=== PATIENT | male | born 1945 | race Caucasian/White ===

== ENCOUNTER 2021-06-12 17:38 | Inpatient (IN) ==
[2021-06-12 18:27] LABS: Red Cell Distribution Width 13.2 % (11.5-14.5)
[2021-06-12 18:29] LABS: Eosinophils # 0.1 K/mcL (0.0-0.6); Immature Platelets 5.3 % (1.1-6.1); Mean Corpuscular HGB Conc 34.2 g/dL (31.6-35.5); Mean Corpuscular Hemoglobin 34.6 pg (28.0-33.3); Mean Corpuscular Volume 101.1 fL (83.0-100.0); Mean Platelet Volume 9.5 fL (9.4-12.4); Red Blood Count 3.76 M/mcL (4.19-5.50)
[2021-06-12 19:30] LABS: Platelet Count 90 K/mcL (140-400)
[2021-06-12 19:34] LABS: Influenza A PCR Negative (Negative); Influenza B PCR Negative (Negative); Resp. Syncytial Virus PCR Negative (Negative)
[2021-06-12 19:35] LABS: Lymphocytes # 0.9 K/mcL (0.6-4.6); Monocytes # 0.2 K/mcL (0.0-1.3); Neutrophils # 1.8 K/mcL (1.6-8.9); Platelet Estimate Decreased (Normal); Reactive Lymphocytes Present (Not Present)
[2021-06-12 19:49] LABS: SARS-CoV-2 by PCR (In House) Positive (Negative)
[2021-06-12 21:07] LABS: Alanine Aminotransferase 85 Units/L (7-52); Albumin 3.6 g/dL (3.5-5.7); Albumin/Globulin Ratio 0.9 (1.1-2.2); Alkaline Phosphatase 55 Units/L (34-104); Aspartate Amino Transferase 138 Units/L (13-39); BUN/Creatinine Ratio 22 (6-26); Bilirubin,Total 0.5 mg/dL (0.3-1.0); Blood Urea Nitrogen 32 mg/dL (8-23); Calcium 8.3 mg/dL (8.6-10.3); Carbon Dioxide 26 mEq/L (23-29); Chloride 97 mEq/L (98-107); Globulin 3.8 g/dL (2.4-3.5); Glucose 97 mg/dL (70-105); Osmolality,Calculated 279 (280-300); Potassium 4.6 mEq/L (3.5-5.1); Sodium 131 mEq/L (136-145); Total Protein 7.4 g/dL (6.4-8.9); Troponin I < 0.03 ng/mL (< 0.04); eGFR For African Americans 57 (> 60); eGFR For Non-African Americans 47 (> 60)
[2021-06-12] MEDS ORDERED: Dexamethasone Sodium Phos/PF 10 MG/ML VIAL IVP ONE (21:17)
[2021-06-12] MEDS ORDERED: Isovue-370 500 ML BOTTLE IVP ONE (21:42)
[2021-06-12] MEDS ORDERED: Ondansetron 4 MG/2 ML VIAL IVP PRN (21:58)
[2021-06-12] MEDS ORDERED: *HR* HYDROcodone/Acet 5/325 mg TABLET PO PRN (21:58)
[2021-06-12] MEDS ORDERED: *HR* Promethazine 25 MG/ML VIAL IM PRN (21:58)
[2021-06-12] MEDS ORDERED: Naloxone 0.4 MG/ML INJ IVP PRN (21:58)
[2021-06-12] MEDS ORDERED: Acetaminophen 325 MG TABLET PO PRN (21:58)
[2021-06-12] MEDS ORDERED: Ringers Solution, Lactated 1,000 ML IVC SCH (22:00)
[2021-06-12 22:05] LABS: INR 1.6; Prothrombin Time 18.3 Seconds (9.4-12.1)
[2021-06-12 22:08] LABS: Activated Partial Thrombo Time 32.1 Seconds (26.0-36.0)
[2021-06-12] MEDS ORDERED: *HR* LORazepam 2 MG/ML VIAL IVP PRN ×3 (22:37)
[2021-06-12] MEDS: Apixaban 5 MG TABLET PO SCH (23:20)
[2021-06-12] MEDS ORDERED: Remdesivir 200 MG in 0.9 % Sodium Chloride 100 ML IVPB ONE (23:30)
[2021-06-13 06:01] LABS: Hemoglobin 12.4 g/dL (12.9-16.9); Mean Corpuscular Volume 101.4 fL (83.0-100.0); Red Cell Distribution Width 13.2 % (11.5-14.5)
[2021-06-13 06:03] LABS: Hematocrit 36.7 % (37.5-50.1); Immature Platelets 3.6 % (1.1-6.1); Mean Corpuscular HGB Conc 33.8 g/dL (31.6-35.5); Mean Corpuscular Hemoglobin 34.3 pg (28.0-33.3); Mean Platelet Volume 9.6 fL (9.4-12.4); Monocytes # 0.1 K/mcL (0.0-1.3); Red Blood Count 3.62 M/mcL (4.19-5.50); White Blood Count 1.7 K/mcL (4.3-11.1)
[2021-06-13 06:12] LABS: Fibrinogen 564 mg/dL (169-393)
[2021-06-13 06:16] LABS: D-Dimer 1414 ng/mLFEU (0-500)
[2021-06-13 06:22] LABS: Platelet Count 86 K/mcL (140-400)
[2021-06-13 06:28] LABS: Alanine Aminotransferase 88 Units/L (7-52); Albumin 3.6 g/dL (3.5-5.7); Albumin/Globulin Ratio 1.1 (1.1-2.2); Alkaline Phosphatase 60 Units/L (34-104); Aspartate Amino Transferase 120 Units/L (13-39); BUN/Creatinine Ratio 23 (6-26); Bilirubin,Direct 0.1 mg/dL (0.0-0.2); Bilirubin,Indirect 0.4 mg/dL (0.0-1.0); Bilirubin,Total 0.5 mg/dL (0.3-1.0); Blood Urea Nitrogen 27 mg/dL (8-23); Calcium 8.4 mg/dL (8.6-10.3); Carbon Dioxide 24 mEq/L (23-29); Chloride 101 mEq/L (98-107); Globulin 3.4 g/dL (2.4-3.5); Glucose 211 mg/dL (70-105); Magnesium 2.3 mg/dL (1.6-2.6); Osmolality,Calculated 285 (280-300); Potassium 4.8 mEq/L (3.5-5.1); Sodium 132 mEq/L (136-145); eGFR For African Americans > 60 (> 60); eGFR For Non-African Americans 59 (> 60)
[2021-06-13 06:41] LABS: Ferritin > 1500 ng/mL (20-250)
[2021-06-13 06:46] LABS: Folate 16.7 ng/mL (3.0-16.0)
[2021-06-13 06:47] LABS: Lymphocytes # 0.7 K/mcL (0.6-4.6); Neutrophils # 0.9 K/mcL (1.6-8.9); Platelet Estimate Decreased (Normal); Reactive Lymphocytes Present (Not Present)
[2021-06-13] MEDS: Apixaban 5 MG TABLET PO SCH ×2 (08:00→20:02)
[2021-06-13] MEDS: Dexamethasone Sodium Phos/PF 10 MG/ML VIAL IVP SCH (08:00)
[2021-06-13] MEDS: levoFLOXacin 750 MG TABLET PO SCH (08:00)
[2021-06-13 10:51] LABS: Procalcitonin 0.12 ng/mL (0.00-0.15)
[2021-06-13 11:21] LABS: C-Reactive Protein 90 mg/L (Less than 10); Lactate Dehydrogenase 662 Units/L (140-271)
[2021-06-13] MEDS: Remdesivir 100 MG in 0.9 % Sodium Chloride 100 ML IVPB SCH (22:27)
[2021-06-14 02:47] LABS: Red Cell Distribution Width 12.8 % (11.5-14.5)
[2021-06-14 02:49] LABS: Basophils % 0.5 %; Hematocrit 35.5 % (37.5-50.1); Hemoglobin 12.2 g/dL (12.9-16.9); Immature Granulocytes % 0.5 % (0-4); Lymphocytes # 0.9 K/mcL (0.6-4.6); Lymphocytes % 15.2 %; Mean Corpuscular HGB Conc 34.4 g/dL (31.6-35.5); Mean Corpuscular Volume 98.9 fL (83.0-100.0); Mean Platelet Volume 9.8 fL (9.4-12.4); Monocytes # 0.4 K/mcL (0.0-1.3); Monocytes % 6.3 %; Neutrophils # 4.8 K/mcL (1.6-8.9); Platelet Count 103 K/mcL (140-400); Red Blood Count 3.59 M/mcL (4.19-5.50); Segmented Neutrophils % 77.5 %; White Blood Count 6.2 K/mcL (4.3-11.1)
[2021-06-14 02:52] LABS: Platelet Estimate Decreased (Normal); Reactive Lymphocytes Present (Not Present)
[2021-06-14 03:06] LABS: Alanine Aminotransferase 109 Units/L (7-52); Albumin 3.4 g/dL (3.5-5.7); Albumin/Globulin Ratio 0.9 (1.1-2.2); Alkaline Phosphatase 67 Units/L (34-104); Aspartate Amino Transferase 108 Units/L (13-39); BUN/Creatinine Ratio 26 (6-26); Bilirubin,Direct 0.1 mg/dL (0.0-0.2); Bilirubin,Indirect 0.3 mg/dL (0.0-1.0); Bilirubin,Total 0.4 mg/dL (0.3-1.0); Blood Urea Nitrogen 28 mg/dL (8-23); Calcium 8.7 mg/dL (8.6-10.3); Carbon Dioxide 22 mEq/L (23-29); Chloride 104 mEq/L (98-107); Globulin 3.6 g/dL (2.4-3.5); Glucose 222 mg/dL (70-105); Magnesium 2.1 mg/dL (1.6-2.6); Osmolality,Calculated 292 (280-300); Phosphorous 2.3 mg/dL (2.7-4.5); Potassium 4.2 mEq/L (3.5-5.1); Sodium 135 mEq/L (136-145); eGFR For African Americans > 60 (> 60); eGFR For Non-African Americans > 60 (> 60)
[2021-06-14] MEDS: Melatonin 3 MG TABLET PO PRN ×2 (03:19→21:20)
[2021-06-14] MEDS: Levothyroxine 25 MCG TABLET PO SCH (06:22)
[2021-06-14] MEDS: Furosemide 20 MG/2 ML VIAL IVP SCH (08:17)
[2021-06-14] MEDS: levoFLOXacin 750 MG TABLET PO SCH (08:17)
[2021-06-14] MEDS: Dexamethasone Sodium Phos/PF 10 MG/ML VIAL IVP SCH (08:17)
[2021-06-14] MEDS: Apixaban 5 MG TABLET PO SCH ×2 (08:17→21:20)
[2021-06-14] MEDS: Remdesivir 100 MG in 0.9 % Sodium Chloride 100 ML IVPB SCH (21:20)
[2021-06-15 03:28] LABS: Albumin 3.5 g/dL (3.5-5.7); Albumin/Globulin Ratio 0.9 (1.1-2.2); Bilirubin,Direct 0.1 mg/dL (0.0-0.2); Bilirubin,Indirect 0.4 mg/dL (0.0-1.0); Bilirubin,Total 0.5 mg/dL (0.3-1.0); Globulin 3.9 g/dL (2.4-3.5); Total Protein 7.4 g/dL (6.4-8.9)
[2021-06-15] MEDS: Levothyroxine 25 MCG TABLET PO SCH (04:39)
[2021-06-15] MEDS: levoFLOXacin 750 MG TABLET PO SCH (08:44)
[2021-06-15] MEDS: Furosemide 20 MG/2 ML VIAL IVP SCH (08:44)
[2021-06-15] MEDS: Dexamethasone Sodium Phos/PF 10 MG/ML VIAL IVP SCH (08:44)
[2021-06-15] MEDS: Apixaban 5 MG TABLET PO SCH ×2 (08:45→21:30)
[2021-06-15] MEDS: Cholecalciferol (D-3) 1,000 UNIT (25MCG) TABLET PO SCH (08:45)
[2021-06-15] MEDS: Melatonin 3 MG TABLET PO PRN (21:30)
[2021-06-15] MEDS: Remdesivir 100 MG in 0.9 % Sodium Chloride 100 ML IVPB SCH (21:30)
[2021-06-16 02:46] LABS: Albumin 3.6 g/dL (3.5-5.7); Albumin/Globulin Ratio 1.1 (1.1-2.2); Bilirubin,Direct 0.2 mg/dL (0.0-0.2); Bilirubin,Indirect 0.4 mg/dL (0.0-1.0); Bilirubin,Total 0.6 mg/dL (0.3-1.0); Globulin 3.4 g/dL (2.4-3.5)
[2021-06-16 04:11] VITALS: TEMP 97.9
[2021-06-16] MEDS: Levothyroxine 25 MCG TABLET PO SCH (05:33)
[2021-06-16] MEDS: levoFLOXacin 750 MG TABLET PO SCH (09:23)
[2021-06-16] MEDS: Apixaban 5 MG TABLET PO SCH (09:23)
[2021-06-16] MEDS: Cholecalciferol (D-3) 1,000 UNIT (25MCG) TABLET PO SCH (09:23)
[2021-06-16] MEDS: Furosemide 20 MG/2 ML VIAL IVP SCH (09:25)
[2021-06-16] MEDS: Dexamethasone Sodium Phos/PF 10 MG/ML VIAL IVP SCH (09:25)
[2021-06-16 11:14] VITALS: BP 130/76; PULSE 74
[2021-06-16 13:54] VITALS: O2SAT 96
== END 2021-06-16 15:36 | disposition home or self-care (01) | DRG 871 ==
LOC: EMEROOARM 17:38 → 3BNU 17:38 → SUATTDRO 22:02 → 3BNU 23:00
PROVIDERS: ADMIT Internal Medicine; ATTEND Internal Medicine